=== PATIENT | female | born 1960 | race Caucasian/White ===

== ENCOUNTER 2020-07-27 09:37 | Inpatient (IN) | payer OTHER ==
[~2020-07-27] VITALS: Ht 172.7 cm; Wt 100.0 kg
[2020-07-27 10:19] LABS: BASOPHILS % (AUTO) 0.4 % (0-1); EOSINOPHILS % (AUTO) 0 % (0-6); HEMATOCRIT 34.2 % (35.0-45.0); HEMOGLOBIN 11.2 g/dl (12.0-16.0); LYMPHOCYTES # (AUTO) 1.1 X10'3 (1.1-4.8); LYMPHOCYTES % (AUTO) 13.1 % (21-51); MEAN CORPUSCULAR HEMOGLOBIN 30.8 PG (27.0-31.0); MEAN CORPUSCULAR HGB CONC 32.9 g/dL (33.0-36.5); MEAN CORPUSCULAR VOLUME 93.6 FL (78-98); MEAN PLATELET VOLUME 9.7 FL (7.4-10.4); MONOCYTES # (AUTO) 0.6 X10'3 (0-0.9); MONOCYTES % (AUTO) 6.8 % (2-12); NEUTROPHILS % (AUTO) 79.7 % (42-75); PLATELET COUNT 241 X10'3 (140-440); RED BLOOD COUNT 3.65 X10'6 (4.20-5.60); WHITE BLOOD COUNT 8.7 X10'3 (4.5-11.0)
[2020-07-27 10:37] LABS: ALANINE AMINOTRANSFERASE 16 U/L (12-78); ALBUMIN 3.4 G/DL (3.4-5.0); ALBUMIN/GLOBULIN RATIO 0.9 (1.1-1.5); ALKALINE PHOSPHATASE 81 IU/L (46-116); ANION GAP 14 (8-16); ASPARTATE AMINO TRANSFERASE 15 U/L (10-37); BILIRUBIN,TOTAL 0.3 MG/DL (0.1-1.0); BLOOD UREA NITROGEN 21 MG/DL (7-18); BUN/CREATININE RATIO 18.1 (6.6-38.0); CALCIUM 9.3 MG/DL (8.5-10.1); CHLORIDE 106 MMOL/L (99-107); CREATININE 1.16 MG/DL (0.40-0.90); GLUCOSE 128 MG/DL (70-104); POTASSIUM 4.6 MMOL/L (3.5-5.1); SODIUM 141 MMOL/L (135-145); TOTAL CARBON DIOXIDE 21.3 MMOL/L (24-32); TOTAL PROTEIN 7.3 G/DL (6.4-8.2); eGFR 47 ML/MIN
[2020-07-27] MEDS ORDERED: metoprolol tartrate 1mg/ml inj IV PRN (11:10)
[2020-07-27] MEDS ORDERED: magnesium hydroxide 30ml (MOM) UD suspension PO PRN (11:10)
[2020-07-27] MEDS ORDERED: nitroGLYCERIN 0.4mg SUBLingual tab SL PRN ×2 (11:10)
[2020-07-27] MEDS ORDERED: mag hydrox/Alum hydrox/simeth 30ml oral suspension PO PRN (11:10)
[2020-07-27] MEDS ORDERED: ondansetron/PF 4mg/2ml inj IV PRN (11:10)
[2020-07-27] MEDS ORDERED: potassium Cl 20 mEq SR tablet PO PRN ×2 (11:10)
[2020-07-27] MEDS ORDERED: ESTR-9 PO (11:10)
[2020-07-27] MEDS ORDERED: aminophylline 250mg/10ml inj. IV PRN (11:10)
[2020-07-27] MEDS ORDERED: acetaminophen 325mg tablet PO PRN (11:10)
[2020-07-27] MEDS ORDERED: regadenoson 0.4mg/5ml syringe IV PRN (11:10)
[2020-07-27] MEDS ORDERED: VENL150C2 PO (11:10)
[2020-07-27] MEDS ORDERED: magnesium 4gm in 100ml NS 100 ML IV PRN (11:10)
[2020-07-27] MEDS ORDERED: potassium Cl 40MEQ/1/2NS 520ml 520 ML IV PRN ×2 (11:10)
[2020-07-27] MEDS ORDERED: magnesium 2GM in 50ml NS 50 ML IV PRN (11:10)
[2020-07-27] MEDS ORDERED: LEVO75TA PO (11:12)
[2020-07-27] MEDS ORDERED: LORA-269 PO (11:13)
[2020-07-27] MEDS ORDERED: LORazepam 1 MG tablet PO PRN (12:25)
--- NOTE | 2020-07-27 12:56 | NUR ---
ATTEMPTED TO CALL REPORT, SPOKE TO KAT, AMMUNITION ASSEMBLY I LABORER. NURSE WILL BE SUE WHO WILL CALL BACK
--- NOTE | 2020-07-27 13:21 | NUR ---
admission discharge rn matt in pcu aware that I tried to call report. Ruy FUENTES is wheeling his patient out.
--- NOTE | 2020-07-27 13:28 | NUR ---
Received report from Winsome FUENTES ED. had opportunity to ask questions concerning Pt care and plan. Awaiting arrival of Pt to room 3029N.
--- NOTE | 2020-07-27 13:45 | NUR ---
Pt arrived to room 3023A. Pt alert and oriented and vitals: 131/78, HR 74, RR 17, 99% RA, 97.4. Will continue to monitor pt as needed.
[2020-07-27 15:00] VITALS: BP 130/44
[2020-07-27 18:00] VITALS: BP 129/55
--- NOTE | 2020-07-27 18:16 | NUR ---
Problems reprioritized. Patient report given, questions answered & plan of care reviewed with Ryland FUENTES .
[2020-07-27] MEDS ORDERED: LORazepam 0.5 MG tablet PO PRN (19:43)
[2020-07-27] MEDS: K and/or MAG REPLACEMENT MC SCH (19:56)
[2020-07-27] MEDS ORDERED: enoxaparin 40mg/0.4ml syringe SQ SCH (20:00)
[2020-07-27 22:00] VITALS: BP 142/65
[2020-07-28] VITALS (8 sets, daily range): BP systolic 113–167; BP diastolic 62–87
--- NOTE | 2020-07-28 06:00 | NUR ---
Patient in room PCU 3023. I have received report from ALFREDO Redmond and had the opportunity to ask questions and assume patient care.
--- NOTE | 2020-07-28 06:03 | NUR ---
Patient in room PCU 3023. I have received report from Tr FUENTES and had the opportunity to ask questions and assume patient care.
--- NOTE | 2020-07-28 06:13 | NUR ---
report given to and discussed with ALFREDO Redmond
[2020-07-28 07:08] LABS: BASOPHILS % (AUTO) 0.4 % (0-1); EOSINOPHILS % (AUTO) 0.1 % (0-6); HEMATOCRIT 31.4 % (35.0-45.0); HEMOGLOBIN 10.4 g/dl (12.0-16.0); LYMPHOCYTES # (AUTO) 1.7 X10'3 (1.1-4.8); LYMPHOCYTES % (AUTO) 27.1 % (21-51); MEAN CORPUSCULAR HGB CONC 33.2 g/dL (33.0-36.5); MEAN CORPUSCULAR VOLUME 93.5 FL (78-98); MEAN PLATELET VOLUME 9.7 FL (7.4-10.4); MONOCYTES # (AUTO) 0.6 X10'3 (0-0.9); MONOCYTES % (AUTO) 9.3 % (2-12); NEUTROPHILS # (AUTO) 3.9 X10'3 (1.8-7.7); NEUTROPHILS % (AUTO) 63.1 % (42-75); PLATELET COUNT 220 X10'3 (140-440); RED BLOOD COUNT 3.36 X10'6 (4.20-5.60); WHITE BLOOD COUNT 6.1 X10'3 (4.5-11.0)
[2020-07-28 07:43] LABS: ALANINE AMINOTRANSFERASE 18 U/L (12-78); ALBUMIN 3.1 G/DL (3.4-5.0); ALBUMIN/GLOBULIN RATIO 0.8 (1.1-1.5); ALKALINE PHOSPHATASE 75 IU/L (46-116); ANION GAP 9 (8-16); ASPARTATE AMINO TRANSFERASE 9 U/L (10-37); BILIRUBIN,TOTAL 0.3 MG/DL (0.1-1.0); BLOOD UREA NITROGEN 18 MG/DL (7-18); BUN/CREATININE RATIO 20.2 (6.6-38.0); CALCIUM 9.1 MG/DL (8.5-10.1); CHLORIDE 108 MMOL/L (99-107); CHOL/HDL RATIO 3.3 (0.00-4.99); CHOLESTEROL 213 MG/DL (0-200); CREATININE 0.89 MG/DL (0.40-0.90); GLUCOSE 102 MG/DL (70-104); HDL CHOLESTEROL 65 MG/DL (35-60); LDL CHOLESTEROL 107 MG/DL (50-100); POTASSIUM 4.4 MMOL/L (3.5-5.1); SODIUM 143 MMOL/L (135-145); TOTAL CARBON DIOXIDE 26.4 MMOL/L (24-32); TOTAL PROTEIN 6.8 G/DL (6.4-8.2); TRIGLYCERIDES 204 MG/DL (20-135); eGFR 64 ML/MIN
[2020-07-28] MEDS ORDERED: venlafaxine XR 75mg capsule (Q24H) PO SCH (08:00)
[2020-07-28] MEDS ORDERED: levoTHYROXINE 75mcg tablet PO SCH (08:00)
[2020-07-28] MEDS: K and/or MAG REPLACEMENT MC SCH (08:00)
--- NOTE | 2020-07-28 11:32 | NUR ---
PAGER ID: [phone] MESSAGE: Re: Angela Jones. Room: 3023A. Kina scan report has resulted. -[facility] #[id number] -Dr. Nava paged concerning Kina results.
--- NOTE | 2020-07-28 12:58 | NUR ---
PAGER ID: [phone] MESSAGE: Re: Angela Jones. Room: 3023A. Kina results are back. Pt asking about Discharge. -[facility] #[id number] Dr. Nava paged concerning Pt's DC
--- NOTE | 2020-07-28 13:45 | NUR ---
Patient is stable for discharge per MD orders. All discharge instructions reviewed with pt and all questions answered. Patient will make follow up appointment with primary provider. PIV discontinued, cannula intact. quality assurance monitor body discontinued. Belongings collected and sent with patient. Patient was wheeled to the [facility] in wheelchair. Patient was put into private vehiclke Addendum: 07/28/20 at 1412 by Carole Randle RN vehicle. Armband was removed at time of discharge.
--- NOTE | 2020-07-28 14:00 | NUR ---
Orientee documentation: I have reviewed and agree with all interventions, assessments performed and documented by Carole FUENTES.
== END 2020-07-28 13:52 | disposition home or self-care (01) | DRG 313 ==
LOC: ER 09:37 → ED HOLD 11:10 → PCU 3S 12:10
PROVIDERS: ADMIT Family Medicine; ATTEND Family Medicine
DX: R07.89 Other chest pain (principal); D62 Acute posthemorrhagic anemia; E03.9 Hypothyroidism, unspecified; F32.9 Major depressive disorder, single episode, unspecified; Z96.642 Presence of left artificial hip joint; Z82.49 Family history of ischemic heart disease and other diseases of the circulatory system; Z80.1 Family history of malignant neoplasm of trachea, bronchus and lung
CPT/HCPCS: 36415; 71045; 78452; 80053; 80061; 83735; 84484; 85025; 87081; 93005; 93017; 93306; 93308; 99285; A9500; G0378; J1650; J2785